=== PATIENT | female | born 1985 | race Caucasian/White ===

== ENCOUNTER 2017-05-02 14:01 | Observation (INO) | payer OTHER ==
[2017-05-02] MEDS ORDERED: fentaNYL 100 MCG/2 ML INJ ONE ×3 (14:07→21:40)
[2017-05-02] MEDS ORDERED: fentaNYL 100 MCG/2 ML INJ IVP ONE (14:10)
--- NOTE | 2017-05-02 14:37 | EDPHY ---
H & P Time Seen by Provider: 05/02/17 14:09 HPI/ROS: CHIEF COMPLAINT: Left-sided clavicle pain HISTORY OF PRESENT ILLNESS: 31-year-old female presents after a fall with left clavicle pain. She was snowboarding, fell and landed directly onto her left shoulder. Immediate onset of severe pain and swelling in the left clavicular area. Associated with difficulty moving her LUE secondary to pain. No shortness of breath; no numbness or weakness in LUE. She did not hit her head; no headache or neck pain. No other injuries. Fentanyl IV per EMS with transient relief of pain. REVIEW OF SYSTEMS: Constitutional: No weakness Eyes: No visual changes or eye pain ENT: No dental trauma Neck:No pain or injury Respiratory: No shortness of breath Gastrointestinal: No abdominal pain, no vomiting Back:No pain or injury Genitourinary: No hematuria Musculoskeletal: No joint pain Skin: No lacerations Neurological: No headache, no dizziness (Ivonne Britt) Past Medical/Surgical History: Denies (Ivonne Britt) Social History: No recent alcohol (Ivonne Britt) Physical Exam: General Appearance: Alert, appears in pain, tearful Head: Atraumatic Eyes: No conjunctival erythema, PERRLA, EOMI ENT, Mouth: No hemotympanum, no oral trauma, no bony tenderness Neck: Nontender, range of motion without neck pain; ROM causes pain over the left clavicle area Respiratory: tender and swelling over the medial aspect of the clavicle, no other c/w tenderness, lungs clear bilaterally Cardiovascular: Regular rate and rhythm Abdomen: Abdomen is soft and nontender Skin: No lacerations, no abrasions Back: No midline T/L/S tenderness Extremities: Tenderness and deformity over the medial aspect of the left clavicle, no tenderness over the left shoulder Neurological: A&Ox3, normal motor function, normal sensory exam, cranial nerves intact Vascular: radial pulse 2+, cap refill brisk bilaterally Psychiatric: tearful (Ivonne Britt) Constitutional: Initial Vital Signs Temperature (C) 36.3 C 05/02/17 14:14 Heart Rate 91 05/02/17 14:14 Respiratory Rate 16 05/02/17 14:14 Blood Pressure 130/102 H 05/02/17 14:14 O2 Sat (%) 97 05/02/17 14:14 O2 Delivery Mode Room Air Allergies/Adverse Reactions: No Known Allergies Allergy (Unverified 05/02/17 14:16) Home Medications: Medication Instructions Recorded NK [No Known Home Meds] 05/02/17 Medical Decision Making - Diagnostics Imaging Results: Imaging Impressions Clavicle X-Ray 05/02/17 14:15 Impression: Negative for fracture.. Chest CT 05/02/17 14:46 Impression: 1. Posterior dislocation of the left sternoclavicular joint. 2. No evidence of vascular injury or hematoma. No discrete fracture. Findings and recommendations discussed with Dr. Galindo at 4:22 hour, 05/02/2017. ED Course/Re-evaluation: This patient presents with left clavicle pain after a fall. X-ray reveals no evidence of fracture. Given severity of pain and location of swelling/ tenderness, I suspect that she may have a clavicle dislocation. No evidence of neurovascular compromise on exam; no numbness, weakness or vascular deficit. CT scan of the chest with IV contrast ordered. Multiple doses of IV narcotics required to control her pain. CT scan is pending at shift change. Signed over to Dr. Galindo to check CT scan results. Repeat exam at shift change is unchanged; I do not suspect additional injuries. (Ivonne Britt) Other Provider: I assumed care of the patient at 3pm pending CT. CT scan does demonstrate a dislocation of the proximal clavicular head. I discussed this with radiologist at 4:25 p.m. and have consulted with Orthopedic surgery. I re-evaluated the patient at 4:30 p.m.. She is neurologically intact. She has a brisk radial and ulnar pulse noted in the left upper extremity. She is having no difficulty breathing. She reports she last ate at 7 o'clock this morning. The patient did receive an adjunctive dose of ketamine at 25 mg for additionally analgesia. She reports that her pain is now much better controlled. I spoke with Dr. Gil from Orthopedic surgery who is in route to evaluate the patient. She has been kept NPO in the emergency department. (Cheikh Galindo) - Data Points Laboratory Results: Laboratory Results 05/02/17 15:15 05/02/17 15:15 05/02/17 05/02/17 05/02/17 15:15 15:15 15:15 WBC 16.06 10^3/uL H 10^3/uL (3.80-9.50) RBC 4.85 10^6/uL 10^6/uL (4.18-5.33) Hgb 13.4 g/dL g/dL (12.6-16.3) Hct 41.1 % % (38.0-47.0) MCV 84.7 fL fL (81.5-99.8) MCH 27.6 pg L pg (27.9-34.1) MCHC 32.6 g/dL g/dL (32.4-36.7) RDW 14.4 % % (11.5-15.2) Plt Count 342 10^3/uL 10^3/uL (150-400) MPV 9.2 fL fL (8.7-11.7) Neut % (Auto) 82.2 % H % (39.3-74.2) Lymph % (Auto) 11.1 % L % (15.0-45.0) [place] % (Auto) 5.0 % % (4.5-13.0) Eos % (Auto) 0.3 % L % (0.6-7.6) Baso % (Auto) 0.7 % % (0.3-1.7) Nucleat RBC Rel Count 0.0 % % (0.0-0.2) Absolute Neuts (auto) 13.19 10^3/uL H 10^3/uL (1.70-6.50) Absolute Lymphs (auto) 1.79 10^3/uL 10^3/uL (1.00-3.00) Absolute Monos (auto) 0.81 10^3/uL H 10^3/uL (0.30-0.80) Absolute Eos (auto) 0.05 10^3/uL 10^3/uL (0.03-0.40) Absolute Basos (auto) 0.11 10^3/uL H 10^3/uL (0.02-0.10) Absolute Nucleated RBC 0.00 10^3/uL 10^3/uL (0-0.01) Immature Gran % 0.7 % % (0.0-1.1) Immature Gran # 0.11 10^3/uL H 10^3/uL (0.00-0.10) Sodium 142 mEq/L mEq/L (135-145) Potassium 3.7 mEq/L mEq/L (3.5-5.2) Chloride 109 mEq/L mEq/L (97-110) Carbon Dioxide 22 mEq/l mEq/l (22-31) Anion Gap 11 mEq/L mEq/L (8-16) BUN 11 mg/dL mg/dL (7-23) Creatinine 0.5 mg/dL L mg/dL (0.6-1.0) Estimated GFR > 60 Glucose 105 mg/dL H mg/dL (70-100) Calcium 9.1 mg/dL mg/dL (8.5-10.4) Beta HCG, Qual NEGATIVE Medications Given: Hydromorphone HCl (Dilaudid) 0.5 - 1 mg IVP Q2H PRN PRN Reason: Pain, Severe Unable to Take PO Stop: 05/12/17 18:46 Last Admin: 05/02/17 19:14 Dose: 1 mg Oxycodone HCl (Oxycodone Ir) 5 - 10 mg PO Q4HRS PRN PRN Reason: Pain, Severe Able to Take PO Stop: 05/12/17 18:46 Last Admin: 05/02/17 19:13 Dose: 10 mg Discontinued Medications Fentanyl (Sublimaze) 100 mcg IVP EDNOW ONE Stop: 05/02/17 14:11 Last Admin: 05/02/17 14:10 Dose: 100 mcg Hydromorphone HCl (Dilaudid) 0.5 mg IVP Q2HRS PRN PRN Reason: Pain, Severe Unable to Take PO Last Admin: 05/02/17 14:48 Dose: 0.5 mg Hydromorphone HCl (Dilaudid) 1 mg IVP EDNOW ONE Stop: 05/02/17 18:06 Last Admin: 05/02/17 18:10 Dose: 1 mg Ketamine HCl (Ketamine) 25 mg IVP EDNOW ONE Stop: 05/02/17 16:17 Last Admin: 05/02/17 16:17 Dose: 25 mg Ketamine HCl (Ketamine) 10 mg IVP ONCE ONE Stop: 05/02/17 18:05 Last Admin: 05/02/17 18:13 Dose: 10 mg Ketorolac Tromethamine (Toradol) 30 mg IVP EDNOW ONE Stop: 05/02/17 14:43 Last Admin: 05/02/17 14:48 Dose: Not Given Departure - Departure Disposition: [facility] Acute Clinical Impression: Closed dislocation of left clavicle Qualifiers: Encounter type: initial encounter Qualified Code(s): S43.102A - Unspecified dislocation of left acromioclavicular joint, initial encounter Condition: Good
[2017-05-02] MEDS ORDERED: KETOROLAC 15 MG/1 ML SDV IVP ONE (14:42)
[2017-05-02] MEDS ORDERED: HYDROmorphONE/DILAUDID 1 MG/ML INJ IVP PRN ×3 (14:46→22:51)
[2017-05-02] MEDS ORDERED: HYDROmorphONE/DILAUDID 2 MG/ML INJ ONE ×2 (14:46→21:09)
[2017-05-02] MEDS ORDERED: IOPAMIDOL (ISOVUE-300) 100 ML BTL ONE (15:22)
[2017-05-02 15:31] LABS: PLATELET COUNT 342 10^3/uL (150-400)
[2017-05-02] MEDS ORDERED: KETAMINE 200 MG/20 ML VIAL ONE (16:05)
[2017-05-02] MEDS ORDERED: KETAMINE 200 MG/20 ML VIAL IVP ONE (16:16)
[2017-05-02] MEDS ORDERED: KETAMINE 500 MG/10 ML VIAL IVP ONE (18:04)
[2017-05-02] MEDS ORDERED: HYDROmorphONE/DILAUDID 2 MG/ML INJ IVP ONE (18:05)
[2017-05-02] MEDS ORDERED: HYDROmorphONE/DILAUDID 2 MG/ML INJ IVP PRN ×2 (18:30→23:45)
[2017-05-02] MEDS ORDERED: ONDANSETRON DISINTEGRATING 4 MG TAB PO PRN (18:47)
[2017-05-02] MEDS ORDERED: ONDANSETRON 4 MG/2 ML VIAL IVP PRN ×2 (18:47→22:51)
[2017-05-02] MEDS ORDERED: LR 1,000 ML IV SCH (19:00)
[2017-05-02] MEDS: oxyCODONE IR 5 MG TAB PO PRN (19:13)
[2017-05-02] MEDS: HYDROmorphONE/DILAUDID 2 MG/ML INJ IVP PRN (19:14)
[2017-05-02] MEDS ORDERED: fentaNYL 100 MCG/2 ML INJ IVP PRN ×2 (21:10→22:51)
[2017-05-02] MEDS ORDERED: NALOXONE HCL 0.4 MG/ML INJ IVP PRN ×2 (21:10→22:51)
--- NOTE | 2017-05-02 21:29 | PDHPUP ---
History & Physical Update H&P update statement: This history and physical update is based on an assessment of the patient which was completed after admission or registration (within 24 hours), but prior to the surgery/procedure. H&P update: H&P reviewed & patient examined, no change in patient's condition since H&P completed
[2017-05-02] MEDS ORDERED: MIDAZOLAM 2 MG/2 ML VIAL IVP ONE (21:33)
--- NOTE | 2017-05-02 21:33 | PDANEPAE ---
ANE History of Present Illness left clavicle fracture ANE Past Medical History - Cardiovascular History Hx Hypertension: No Hx Arrhythmias: No Hx Chest Pain: No Hx Coronary Artery / Peripheral Vascular Disease: No Hx CHF / Valvular Disease: No Hx Palpitations: No - Pulmonary History Hx COPD: No Hx Asthma/Reactive Airway Disease: No Hx Recent Upper Respiratory Infection: No Hx Oxygen in Use at Home: No Hx Sleep Apnea: No Sleep Apnea Screening Result - Last Documented: Negative - Endocrine History Hx Diabetes: No Hypothyroid: No Hyperthyroid: No Obesity: no ANE Review of Systems Review of systems is: negative Review of Systems: - Exercise capacity Exercise capacity: >=4 METS ANE Patient History - Allergies Allergies/Adverse Reactions: No Known Allergies Allergy (Unverified 05/02/17 14:16) - Home Medications Home medications: home medication list seen and reviewed Home Medications: NK [No Known Home Meds] 05/02/17 [Last Taken Unknown] - NPO status NPO Since - Liquids (Date): 05/02/17 NPO Since - Liquids (Time): 07:30 NPO Since - Solids (Date): 05/02/17 NPO Since - Solids (Time): 07:30 - Anes Hx Anes Hx: no prior problems - Smoking Hx Smoking Status: Current every day smoker ANE Labs/Vital Signs - Labs Result Diagrams: 05/02/17 15:15 05/02/17 15:15 - Vital Signs Blood Pressure: 125/88 Heart Rate: 88 Respiratory Rate: 18 O2 Sat (%): 99 Height: 167.64 cm Weight: 63.503 kg ANE Physical Exam - Airway Neck exam: FROM Mallampati Score: Class 1 Mouth exam: normal dental/mouth exam - Pulmonary Pulmonary: no respiratory distress - Cardiovascular Cardiovascular: regular rate and rhythym - ASA Status ASA Status: I, E ANE Anesthesia Plan Anesthesia Plan: general endotracheal anesthesia
[2017-05-02] MEDS ORDERED: PROPOFOL 200 MG/20 ML VIAL ONE (21:40)
[2017-05-02] MEDS ORDERED: ROCURONIUM 50 MG/5 ML VIAL ONE (21:40)
[2017-05-02] MEDS ORDERED: DEXAMETHASONE 4 MG/ML VIAL ONE (21:41)
[2017-05-02] MEDS ORDERED: SUGAMMADEX SODIUM 200 MG/2 ML VIAL IVP ONE (21:41)
[2017-05-02] MEDS ORDERED: ONDANSETRON 4 MG/2 ML VIAL ONE (21:41)
[2017-05-02] MEDS ORDERED: LIDOCAINE 2% 5 ML SDV ONE (21:41)
[2017-05-02] MEDS ORDERED: METOCLOPRAMIDE 10 MG/2 ML VIAL IVP PRN (22:51)
[2017-05-02] MEDS ORDERED: HYDROCODONE/APAP 5/325 TAB PO PRN (22:51)
[2017-05-02] MEDS ORDERED: ALBUTEROL 3 ML DEYVIAL IH PRN (22:51)
[2017-05-02] MEDS ORDERED: ACETAMINOPHEN 500 MG TAB PO PRN (22:51)
[2017-05-02] MEDS ORDERED: NS 500 ML IV PRN (22:51)
[2017-05-02] MEDS ORDERED: PROMETHAZINE HCL 25 MG/ML INJ IVP PRN (22:51)
[2017-05-02] MEDS ORDERED: OXYCODONE/APAP 5/325 TAB PO PRN (22:51)
--- NOTE | 2017-05-02 22:52 | POSTANESTH ---
Post Anesthetic Evaluation Cardiovascular Status: Normal, Stable Respiratory Status: Normal, Stable Level of Consciousness/Mental Status: Can Participate in Eval Pain Control: Adequate, Prn Tx Ordered Nausea/Vomiting Control: Adequate, Prn Tx Ordered Complications Possibly Related to Anesthesia: None Noted
[2017-05-02] MEDS ORDERED: KETOROLAC 15 MG/1 ML SDV ONE (22:54)
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
--- NOTE | 2017-05-02 23:40 | GOP ---
[f rep st] OPERATIVE REPORT DATE OF OPERATION: 05/02/2017 SURGEON: Ankush Gil MD CLOTHING PATTERN PREPARER: Dr. Kamran Wagner, General Surgeon, was available and present in the room as backup. ANESTHESIA: General. PREOPERATIVE DIAGNOSIS: Left posterior sternoclavicular joint dislocation. POSTOPERATIVE DIAGNOSIS: Left posterior sternoclavicular joint dislocation. PROCEDURE PERFORMED: Left closed reduction of sternoclavicular joint posterior dislocation with manipulation. FINDINGS: ESTIMATED BLOOD LOSS: None. INDICATIONS: The patient is a 31-year-old female who sustained the above- mentioned injury when she fell snowboarding at [facility]. She was seen and evaluated in the ER and admitted by me. I believe that an urgent closed reduction is indicated for this injury due to risk of compression of the mediastinal structures. I discussed with her the risks and benefits of the procedure. Risks of the injury include symptomatic instability. Risks of the procedure mainly include risk of catastrophic injury to the mediastinal structures. Other risks with the closed versus open reduction include pain, bleeding, infection, damage to surrounding structures, need for further operations including reconstruction, and instability. She understood the risks and wished to proceed. DESCRIPTION OF PROCEDURE: The patient was seen in preoperative holding area. She was given an opportunity to ask more questions. All her questions were answered and consent was signed. Surgical site was marked. She was transferred to the operative suite. Anesthesia was induced on the rney. She was then carefully transferred from the rla salle to the operating room table. On the operating table, great care was taken to ensure that all bony prominences were padded. Prior to any manipulation, an x-ray was performed with fluoroscopy using a serendipity view to confirm the dislocation and to provide a comparison view. After this was done, a bed sheet was placed around the chest for countertraction. A rolled blanket was placed between the scapulae to extend the arm. Then, traction was placed on the arm with countertraction on the chest. A palpable reduction was visualized and felt. I palpated the clavicle, and there was a normal contour of the clavicle at its medial sternal end. An x-ray was taken, and it confirmed reduction of the dislocation. She had good 2+ pulses after the reduction. Dr. Wagner was present during the entire reduction maneuver. After this was done, she was placed in a sling, awakened from general anesthesia in stable condition, and taken to the PACU in stable condition. POSTOPERATIVE CONDITION: Stable. POSTOPERATIVE PLAN: The patient will be admitted for observation. She will be discharged tomorrow morning if she is stable. We will plan on keeping her in a sling for 2-3 weeks. She will follow up with me in clinic. /[id number]/MODL MTDD
--- NOTE | 2017-05-02 23:56 | GCON ---
[f rep st] CONSULTATION REFERRING PHYSICIAN: Cheikh Galindo MD Date of consultation is today. CHIEF COMPLAINT: Left shoulder pain. HISTORY OF PRESENT ILLNESS: This is a 31-year-old female who presented to the ER with pain in the medial left shoulder after a fall while snowboarding. She was snowboarding in [place] and then fell directly onto her left shoulder, felt a pop. She had immediate severe pain, swelling in the left anterior clavicular area. She had pain with movement of her left arm. She denied shortness of breath, numbness, or weakness in the left arm. She was seen and evaluated in the ER. X-rays were taken and a CT scan was taken. CT scan confirmed a posterior SC dislocation. REVIEW OF SYSTEMS: Negative, except for as noted above in HPI. SOCIAL HISTORY: No recent alcohol. PAST MEDICAL AND SURGICAL HISTORY: None. FAMILY HISTORY: Noncontributory. PHYSICAL EXAMINATION: GENERAL: Lying in bed, in mild distress due to pain. LEFT UPPER EXTREMITY: She has a 2+ radial pulse. Intact AIN and PIN and ulnar motor. Sensory intact to median, ulnar, and radial nerves. She has swelling over the anterior clavicular area. There is loss of the medial contour of the clavicle. PULMONARY: Chest rise equal and labored bilaterally. No hoarseness. She does complain of some mild pain swallowing. IMAGING: CT scan was reviewed by me. The CT scan shows a left posterior sternoclavicular joint dislocation. There is no evidence of vascular injury. ASSESSMENT/PLAN: Left posterior sternoclavicular joint dislocation. Urgent reduction under general anesthesia is indicated for this injury. I will contact a trauma or cardiothoracic surgeon for backup during the procedure. I discussed with the patient risks and benefits of the procedure. The main risks include catastrophic injury to mediastinal structures which is why the cardiothoracic surgeon will be available. I also discussed with her that posterior clavicle and posterior sternoclavicular dislocations are stable after reduction. However, some patients may develop a symptomatic instability which may necessitate future procedures. We will plan on treating her initially with a sling. She will be admitted to [facility] for observation overnight. /[id number]/MODL MTDD
[2017-05-03] MEDS: KETOROLAC 30 MG/1 ML SDV IVP PRN ×3 (02:55→15:12)
[2017-05-03] MEDS: oxyCODONE IR 5 MG TAB PO PRN ×3 (02:56→12:00)
[2017-05-03] MEDS: ACETAMINOPHEN 325 MG TAB PO SCH ×4 (03:27→20:48)
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
[2017-05-03] MEDS ORDERED: BUPIVACAINE 0.5% 10 ML SDV ONE (16:38)
[2017-05-03] MEDS: HYDROmorphONE/DILAUDID 2 MG/ML INJ IVP PRN ×2 (16:52→20:48)
[2017-05-03] MEDS ORDERED: LR 1,000 ML IV ONE (16:59)
[2017-05-03] MEDS ORDERED: MIDAZOLAM 2 MG/2 ML VIAL IVP ONE (17:05)
--- NOTE | 2017-05-03 17:08 | PDANEPAE ---
ANE History of Present Illness L sternoclavicular joint dislocation ANE Past Medical History - Cardiovascular History Hx Hypertension: No Hx Arrhythmias: No Hx Chest Pain: No Hx Coronary Artery / Peripheral Vascular Disease: No Hx CHF / Valvular Disease: No Hx Palpitations: No - Pulmonary History Hx COPD: No Hx Asthma/Reactive Airway Disease: No Hx Recent Upper Respiratory Infection: No Hx Oxygen in Use at Home: No Hx Sleep Apnea: No Sleep Apnea Screening Result - Last Documented: Negative - Endocrine History Hx Diabetes: No Hypothyroid: No Hyperthyroid: No Obesity: no - Renal History Hx Renal Disorders: No - Liver History Hx Hepatic Disorders: No - Neurological & Psychiatric Hx Hx Neurological and Psychiatric Disorders: No - Cancer History Hx Cancer: No - Congenital Disorder History Hx Congenital Disorders: No - GI History GERD: no Hx Gastrointestinal Disorders: No - Chronic Pain History Chronic Pain: No - Surgical History Prior Surgeries: closed reduction L sternoclavicular joint ANE Review of Systems Review of Systems: - Exercise capacity Exercise capacity: >=4 METS ANE Patient History - Allergies Allergies/Adverse Reactions: No Known Allergies Allergy (Unverified 05/02/17 14:16) - Home Medications Home Medications: NK [No Known Home Meds] 05/02/17 [Last Taken Unknown] - NPO status NPO Since - Liquids (Date): 05/03/17 NPO Since - Liquids (Time): 08:15 NPO Since - Solids (Date): 05/03/17 NPO Since - Solids (Time): 08:15 - Anes Hx Anes Hx: no prior problems - Smoking Hx Smoking Status: Current every day smoker Marijuana use: No - Alcohol Use Alcohol Use: Occasionally - Family Anes Hx Family Anes Hx: neg - N/A ANE Labs/Vital Signs - Labs Result Diagrams: 05/02/17 15:15 05/02/17 15:15 - Vital Signs Blood Pressure: 117/76 Heart Rate: 85 Respiratory Rate: 16 O2 Sat (%): 94 Height: 167.64 cm Weight: 63.503 kg ANE Physical Exam - Airway Neck exam: FROM Mallampati Score: Class 2 Mouth exam: normal dental/mouth exam - Pulmonary Pulmonary: no respiratory distress, no rales or rhonchi, clear to auscultation - Cardiovascular Cardiovascular: regular rate and rhythym, no murmur, rub, or gallop - ASA Status ASA Status: I ANE Anesthesia Plan Anesthesia Plan: general endotracheal anesthesia Total IV Anesthesia: No
[2017-05-03] MEDS ORDERED: PHENYLEPHRINE HCL 100 MCG/ML SYR IVP PRN (17:09)
[2017-05-03] MEDS ORDERED: fentaNYL 100 MCG/2 ML INJ IVP PRN (17:09)
[2017-05-03] MEDS ORDERED: OXYCODONE/APAP 5/325 TAB PO PRN (17:09)
[2017-05-03] MEDS ORDERED: PROMETHAZINE HCL 25 MG/ML INJ IVP PRN (17:09)
[2017-05-03] MEDS ORDERED: ACETAMINOPHEN 500 MG TAB PO PRN (17:09)
[2017-05-03] MEDS ORDERED: HYDROmorphONE/DILAUDID 2 MG/ML INJ IVP PRN (17:09)
[2017-05-03] MEDS ORDERED: ALBUTEROL 3 ML DEYVIAL IH PRN (17:09)
[2017-05-03] MEDS ORDERED: NALOXONE HCL 0.4 MG/ML INJ IVP PRN (17:09)
[2017-05-03] MEDS ORDERED: HYDROCODONE/APAP 5/325 TAB PO PRN (17:09)
[2017-05-03] MEDS ORDERED: epHEDrine SULFATE 10 MG/ML SYR IVP PRN (17:09)
[2017-05-03] MEDS ORDERED: ONDANSETRON 4 MG/2 ML VIAL IVP PRN (17:09)
[2017-05-03] MEDS ORDERED: MEPERIDINE 25 MG/ML SYR IVP PRN (17:09)
[2017-05-03] MEDS ORDERED: LR 500 ML IV PRN (17:09)
[2017-05-03] MEDS ORDERED: fentaNYL 100 MCG/2 ML INJ ONE ×4 (17:13→20:06)
[2017-05-03] MEDS ORDERED: ROCURONIUM 50 MG/5 ML VIAL ONE (17:14)
[2017-05-03] MEDS ORDERED: DEXAMETHASONE 4 MG/ML VIAL ONE (17:14)
[2017-05-03] MEDS ORDERED: LIDOCAINE 2% 5 ML SDV ONE (17:15)
[2017-05-03] MEDS ORDERED: PROPOFOL 200 MG/20 ML VIAL ONE (17:15)
[2017-05-03] MEDS ORDERED: ceFAZolin 2 GM/SWFI 2 GM/20 ML SYR IVP ONE (17:21)
--- NOTE | 2017-05-03 17:25 | SOAPPROG ---
SOAP Progress Note Assessment/Plan: Assessment: POD #1 s/p closed reduction L post SC dislocation -xray shows persistent posterior dislocation -re-dislocation indicative of unstable post SC dislocation. Repeat attempt at reduction with internal suture fixation is indicated Plan: -plan for open reduction this evening 05/03/17 17:22 Subjective: Pt seen at 0700 this am. Doing well last night while lying down. This am when she sat up felt pain and tightness in the shoulder that was similar to prior to the reduction. Also having some pain swallowing again. Objective: Vital Signs Temp Pulse Resp BP Pulse Ox 36.6 C 85 16 117/76 94 05/03/17 16:37 05/03/17 17:08 05/03/17 17:08 05/03/17 17:08 05/03/17 17:08 05/02/17 05/03/17 05/04/17 05:59 05:59 05:59 Intake Total 1530 365 Output Total 0 Balance 1530 365 LUE -prominent sternal manubrium at the SC jt -pain with PROM of arm -intact AIN/PIN/ulnar -SILT M/U/R -2+ radial p ICD10 Worksheet Patient Problems: Problems Problem Status Onset Closed dislocation of left clavicle Acute
[2017-05-03] MEDS ORDERED: NEOSTIGMINE METHYLSULFATE 3 MG/3 ML SYR ONE (18:50)
[2017-05-03] MEDS ORDERED: GLYCOPYRROLATE 0.2 MG/1 ML VIAL ONE ×3 (18:50)
[2017-05-03] MEDS ORDERED: DIAZEPAM 5 MG/ML 1 ML SYR IVP ONE (19:46)
--- NOTE | 2017-05-03 20:55 | GOP ---
[f rep st] OPERATIVE REPORT DATE OF OPERATION: 05/03/2017 SURGEON: Ankush Gil MD ANESTHESIA: General. PREOPERATIVE DIAGNOSIS: Unstable posterior left sternoclavicular joint dislocation. POSTOPERATIVE DIAGNOSIS: Unstable posterior left sternoclavicular joint dislocation. PROCEDURE PERFORMED: Left sternoclavicular joint, open reduction and fixation using FiberTape suture. FINDINGS: ESTIMATED BLOOD LOSS: 20 cc. DESCRIPTION OF PROCEDURE: Patient was seen in preoperative holding area. She was given the opportunity to ask more questions. All of her questions were answered. The consent was then signed. The surgical area was marked. She was then transferred to the operative suite. Care was taken to transfer the patient from the rney to the operating room table. Great care was taken to pad all bony prominences prior to induction of anesthesia. General anesthesia was induced by the anesthesia team. Time-out was called, including the surgical and anesthesia teams confirming the surgical site and procedure to be performed. 2 g of Ancef were given prior to incision. A rolled up towel was placed between the scapulae to extend the arm. The chest and neck were prepped out. Dr. Bowman was present throughout the entire procedure. I made about a 5 cm incision over the medial end of the clavicle, over the sternum. Carefully dissected down through the skin through the clavipectoral fascia and entered the capsule of the SC joint. Hematoma was identified. I peeled away part of the capsule to visualize the sternal end of the clavicle. Then, continued dissection to visualize the manubrium and the manubrial end of the SC joint. Part of the sternocleidomastoid was peeled off to aid in visualization. Now the clavicular and manubrial ends of the sternoclavicular joint were visualized. A towel clip was used to lift the clavicle up out of the wound. A 2 mm drill was then used to drill a tunnel from inferior to superior. We then dissected around the sternal notch carefully. The drill was then used to drill from the ventral surface of the manubrium into the notch. A free needle was then used to pass a 2 mm FiberTape through the tunnel in the manubrium and then this was crossed over in [id number] fashion and then passed through the tunnel in the clavicle. Then, the arm was manipulated to reduce the sternoclavicular joint. The suture was then tied tight. We checked the stability of the repair. The arm was placed through a range of motion and the end of the clavicle was stable. It did not subluxate anteriorly or posteriorly. With posterior direct pressure at the end of the clavicle, there was no posterior dislocation. An x-ray, serendipity view was performed which showed a maintained reduction of the SC dislocation. At this point, the wound was irrigated. The capsule was closed with 0 Vicryl and the wound was then closed in layers with 0 Vicryl, 3-0 Monocryl and 4-0 Monocryl. Steri-Strips were applied. Sterile dressing was applied. The patient tolerated procedure well, was taken to the PACU in stable condition. CO-SURGEON: Jose Bowman DO, cardiothoracic surgery. INDICATIONS FOR PROCEDURES: This is a 31-year-old female who sustained a posterior sternoclavicular joint dislocation on May 02 while snowboarding at [place]. She struck the ground while snowboarding. Seen in the ER, evaluated by the ER staff. CT scan was done which showed a posterior sternoclavicular joint dislocation. She was complaining of some pain and swelling at the time. Otherwise, there were no damage to vascular structures and she was neurovascularly intact in the extremity. She was then taken to the OR urgently by me later that night for a closed reduction. A closed reduction was obtained , confirmed under fluoroscopy. The following morning, visiting the patient, she noted that she felt well while lying down but when she set up in bed, she felt a sudden tightness in her chest and shoulder and again pain with swallowing. X-ray was done which showed again a posterior sternoclavicular dislocation. As the patient dislocated after a closed reduction, this was an unstable dislocation which would require an open reduction and internal fixation. I discussed with her the risks and benefits. Risks include pain, bleeding, infection, damage to surrounding structures, persistent instability anteriorly or posteriorly, pain, stiffness, scarring, and a catastrophic injury to the mediastinal structures. She understood the risks and wished to proceed. POSTOPERATIVE CONDITION: Stable. POSTOPERATIVE PLAN: The patient will be in a sling for 4 weeks. She will be observed until tomorrow morning and if she is stable tomorrow morning, she will be discharged home. We will plan on her being in a sling full stack software developer for 4 weeks and then will be postop protocol. /[id number]/MODL MTDD
[2017-05-03] MEDS ORDERED: ceFAZolin 2 GM/DEXTROSE 100 ML IV SCH (22:00)
[2017-05-04] MEDS: ACETAMINOPHEN 325 MG TAB PO SCH ×2 (02:51→07:44)
[2017-05-04] MEDS: ceFAZolin 2 GM/SWFI 2 GM/20 ML SYR IVP SCH ×2 (02:53→10:02)
[2017-05-04 03:20] VITALS: TEMP 98
[2017-05-04] MEDS: oxyCODONE IR 5 MG TAB PO PRN ×3 (03:46→11:27)
--- NOTE | 2017-05-04 06:54 | SOAPPROG ---
SOAP Progress Note Assessment/Plan: Assessment: POD #1 s/p L SC joint open reduction -doing well this am, pain ctrl'd with oral pain medication Plan: plan d/c home later today 05/03/17 17:22 05/04/17 06:49 Subjective: Sleeping this morning. Pain controlled with oral pain medication. Got up to bathroom. Has some increased pain when upright and sitting. Sore throat. No dysphagia Objective: Vital Signs Temp Pulse Resp BP Pulse Ox 36.7 C 85 16 122/73 H 100 05/04/17 03:20 05/04/17 03:20 05/04/17 03:20 05/04/17 03:20 05/04/17 03:20 05/03/17 05/04/17 05/05/17 05:59 05:59 05:59 Intake Total 1530 1715 Output Total 0 30 Balance 1530 1685 L shoulder -incision and dressing c/d/i -NV intact distally -2+ radial pulse ICD10 Worksheet Patient Problems: Problems Problem Status Onset Closed dislocation of left clavicle Acute
[2017-05-04] MEDS: HYDROmorphONE/DILAUDID 2 MG/ML INJ IVP PRN (07:33)
[2017-05-04 08:17] VITALS: BP 128/81; PULSE 78; RESP 17; O2SAT 93
[2017-05-04] MEDS: KETOROLAC 30 MG/1 ML SDV IVP PRN (10:01)
--- NOTE | 2017-05-04 10:58 | ASMTLACE ---
TERESE Length of stay for Answers: 2 days current admission Acuity / Level of Answers: No Care: Did the patient have an inpatient admission? # of Emergency department Answers: 1-2 visits in the last 6 months Score: 3 Date Signed: 05/04/2017 10:57 AM Electronically Signed By:Shirin Garcias RN
== END 2017-05-04 11:35 | disposition home or self-care (01) ==
LOC: F3N 18:22
PROVIDERS: ADMIT Orthopaedic Surgery Hand Surgery; ATTEND Orthopaedic Surgery Hand Surgery
PROC: 0RSFXZZ Reposition Left Sternoclavicular Joint, External Approach (ICD-10-PCS; 2017-05-02)
PROC: BP1 Imaging, Non-Axial Upper Bones, Fluoroscopy (ICD-10-PCS; 2017-05-02)
PROC: BP1 Imaging, Non-Axial Upper Bones, Fluoroscopy (ICD-10-PCS; 2017-05-03)
PROC: 0RS Upper Joints, Reposition (ICD-10-PCS; principal; 2017-05-03 17:30)
DX: S43.225A Posterior dislocation of left sternoclavicular joint, initial encounter (principal); Y93.23 Activity, snow (alpine) (downhill) skiing, snowboarding, sledding, tobogganing and snow tubing; V00.311A Fall from snowboard, initial encounter; Y92.828 Other wilderness area as the place of occurrence of the external cause; Y99.8 Other external cause status
CPT/HCPCS: 23525; 23530; 71130; 71260; 73000; 76001; 96374; 96375; 96376; 99285; G0378; C1713; J0690; J1100; J1170; J1200; J1885; J2250; J2405; J2704; J2710; J3010; Q9967

== ENCOUNTER → 2017-05-31 | Outpatient (CLI) | payer OTHER | LOC: BMCIMAGING 12:49 | PROVIDERS: ATTEND Orthopaedic Surgery Hand Surgery | DX: S43.205A Unspecified dislocation of left sternoclavicular joint, initial encounter (principal) ==

== ENCOUNTER → 2017-06-01 | Outpatient (CLI) | payer OTHER | LOC: FIMAGING 15:10 | PROVIDERS: ATTEND Orthopaedic Surgery Hand Surgery | DX: S43.205A Unspecified dislocation of left sternoclavicular joint, initial encounter (principal) ==